=== PATIENT | male | born 1980 | race Caucasian/White ===

== ENCOUNTER 2017-04-14 10:14 | Emergency (ER) | payer OTHER ==
[~2017-04-14] VITALS: Ht 185.4 cm; Wt 98.4 kg
[2017-04-14] MEDS ORDERED: BUSP7.5T5 PO (10:39)
[2017-04-14] MEDS ORDERED: ALPR0.5T PO (10:39)
--- NOTE | 2017-04-14 10:49 | ED Upper Extremity ---
General Chief Complaint: Upper Extremity Stated Complaint: R WRIST INJ Nursing Triage Note: PT C O OF R WRIST PAIN STATES FELL LAST PM AND TRIED TO CATCH SELF INJURING R WRIST. Nursing Sepsis Screen: No Definite Risk Source: patient, family Exam Limitations: no limitations History of Present Illness Time seen by provider: 10:45 Initial Comments This 37-year-old white male presents after falling on outstretched dominant right arm shortly prior to presentation emergency department patient's complaint of pain over the radial aspect of the right wrist. Patient sustained associated abrasions to the right elbow. Patient denies other injury to his accident. Patient denies previous significant injury to his right wrist. Patient's last tetanus immunization was greater than 10 years. Patient denies paresthesias or weakness in the right upper extremity. Allergies and Home Medications Allergies Coded Allergies: No Known Drug Allergies (Unverified Allergy, Mild, 12/29/08) Home Medications Alprazolam 0.5 Mg Tablet, 0.5 MG PO, (Reported) Buspirone HCl 7.5 Mg Tablet, Unknown Dose PO, (Reported) Constitutional: No chills, No fever EENTM: No vision loss Respiratory: No short of breath Cardiovascular: No chest pain Gastrointestinal: No abdominal pain Musculoskeletal: see HPI, No back pain, joint pain Skin: other (abrasion posterior aspect of the right elbow.) Psychiatric/Neurological: No Symptoms Reported Past Pzswbpe-Dntyjw-Mqtcwt Hx Patient Social History Alcohol Use: Denies Use Recreational Drug Use: No Smoking Status: Never a Smoker Recent Foreign Travel: No Contact w/Someone Who Travel: No Recent Infectious Disease Expo: No Physical Abuse: No Sexual Abuse: No Immunizations Up To Date Tetanus Booster (TDap): Less than 5yrs Psychosocial Suicide Risk Score: 0 Reviewed Nursing Assessment Reviewed/Agree w Nursing PMH: Yes Physical Exam Vital Signs Vital Sign - Last 12Hours 04/14/17 10:25 Temp 97.9 Pulse 76 Resp 18 B/P (MAP) 120/81 Pulse Ox 97 Capillary Refill : Less Than 3 Seconds General Appearance: WD/WN, mild distress HEENT: PERRL/EOMI, normal ENT inspection Neck: non-tender, full range of motion Cardiovascular: normal peripheral pulses, regular rate, rhythm, no murmur Respiratory: chest non-tender, lungs clear, normal breath sounds Gastrointestinal: normal bowel sounds Back: normal inspection Shoulder: normal inspection Elbow/Forearm: normal inspection Wrist: Yes pain (there is tenderness and swelling over the right radial wrist and anatomic snuffbox.), Yes soft tissue tenderness, Yes swelling Hand: normal inspection Neurologic/Tendon: normal sensation, normal motor functions, normal tendon functions Neurologic/Psychiatric: no motor/sensory deficits, alert, normal mood/affect Skin: normal color, warm/dry, other (abrasions are noted over the posterior aspect of the right elbow region.) Progress/Results/Core Measures Results/Orders My Orders Orders - THONY FOSTER MD Wrist, Right, 3 Views Or More (04/14/17 10:39) Ns Iv 1000 Ml (Sodium Chloride 0.9%) (04/14/17 11:00) Fentanyl Injection (Sublimaze Injection (04/14/17 11:00) Ondansetron Injection (Zofran Injectio (04/14/17 11:00) Dipht,Pertuss(Acell),Tet Adult (Boostrix (04/14/17 11:00) Ct Extremity Upper Right W (04/14/17 11:11) Medications Given in ED Current Medications Medications Dose Ordered Sig/Ita Route Start Time Stop Time Status Last Admin Dose Admin Fentanyl Citrate 50 mcg ONCE ONCE IVP 04/14/17 11:00 04/14/17 11:01 DC 04/14/17 11:10 100 MCG Vital Signs/I&O Vital Sign - Last 12Hours 04/14/17 10:25 Temp 97.9 Pulse 76 Resp 18 B/P (MAP) 120/81 Pulse Ox 97 Blood Pressure Mean: 94 Progress Note : Time: 11:24 Progress Note X-ray demonstrated a comminuted intra-articular Colles' fracture of the patient' s right wrist. I've ordered a CT of the wrist to further illuminate the fractures and to evaluate the carpals. The patient was given fentanyl IM. The patient was placed in a.m. short arm thumb spica splint. I revisited with Dr. Jasso who will see the patient tomorrow afternoon. I encouraged the patient to religiously ice and elevate the right upper extremity. Patient's to return if any further problems or questions. Departure Impression Impression: Primary Impression: Colles' fracture of right radius Qualified Codes: S52.531A - Colles' fracture of right radius, initial encounter for closed fracture Disposition: HOME, SELF-CARE Condition: Improved Departure-Patient Inst. Decision time for Depature: 11:26 Referrals: NO,LOCAL PHYSICIAN (PCP) Primary Care Physician PER JASSO DO Patient Instructions: Colles' Fracture (DC) Add. Discharge Instructions: Ice and elevate the right upper extremity and there splint. Keep right wrist in splint. Hydrocodone for pain. Follow-up with Dr. Jasso tomorrow afternoon. Call the office at 9 a.m. ([phone]). Come back for any problems or questions All discharge instructions reviewed with patient and/or family. Voiced understanding. THONY FOSTER MD Apr 14, 2017 10:49
[2017-04-14] MEDS ORDERED: TETANUS,DIPTH,PERTUSS P/F (BOOSTRIX) 0.5 ML VIAL IM ONE (11:00)
[2017-04-14] MEDS ORDERED: ONDANSETRON 4 MG/2 ML (SDV) Z0FRAN IVP ONE (11:00)
[2017-04-14] MEDS ORDERED: NS IV 1000 ML 1,000 ML IV SCH (11:00)
[2017-04-14] MEDS ORDERED: fentaNYL INJECTION 100 MCG/2 ML AMP IVP ONE (11:00)
--- NOTE | 2017-04-14 11:31 | Diagnostic Imaging Report ---
INDICATION: Status post fall previous night. Pain. TECHNIQUE: 4 views of the right wrist. CORRELATION STUDY: None. FINDINGS: There is a comminuted impacted intra-articular distal right radius fracture. There is outward displacement of the main distal fracture fragments. There is also slight dorsal displacement of the main distal fracture fragments. The carpal bones follow the slightly dorsally displaced radius. There is a mildly displaced ulnar styloid process fracture. The carpal bones appear to be intact. Soft tissue edema present. IMPRESSION: Comminuted mildly displaced angulated impacted intra-articular distal right radius fracture. Minimally displaced ulnar styloid process fracture. Dictated by: Dictated on workstation # [id number]
--- NOTE | 2017-04-14 11:56 | Diagnostic Imaging Report ---
PROCEDURE: CT right upper extremity without contrast. TECHNIQUE: Multiple contiguous axial images were obtained through the right upper extremity without the use of intravenous contrast. Sagittal and coronal reformations were then performed. INDICATION: Fall with fracture demonstrated on radiograph. Followup. FINDINGS: There is multipart comminuted impacted fracture of the distal left radius. Fracture lines extend into the articular surface particularly along its central and medial aspect. There is impaction along the main fracture lines. Dorsal displacement and offset of the main fracture fragments of approximately 6 mm. There is also some outward displacement of fragments particularly along the dorsal aspect. Slight volar angulation. The carpal bones follow the displaced radial articular surface. There is also mildly displaced ulnar styloid process fracture. Carpal bones intact. Rather prominent soft tissue swelling is noted. IMPRESSION: Comminuted impacted displaced and angulated intra-articular radius fracture. Mildly displaced ulnar styloid process fracture. Associated soft tissue swelling. Dictated by: Dictated on workstation # [id number]
[2017-04-14 12:05] VITALS: BP 120/81
== END 2017-04-14 12:05 | disposition home or self-care (01) ==
LOC: EDUNIT# 10:14 → ER 10:16
DX: S52.531A Colles' fracture of right radius, initial encounter for closed fracture (principal); Z23 Encounter for immunization; W18.30XA Fall on same level, unspecified, initial encounter
CPT/HCPCS: 73110; 73200; 90471; 90715; 96372; 99284

== ENCOUNTER 2020-06-10 15:22 | Emergency (ER) | payer SELFPAY ==
[~2020-06-10] VITALS: Ht 182 cm; Wt 84.0 kg
[~2020-06-10 15:22] MED LIST: ALPR0.5T PO; BUSP7.5T5 PO
[2020-06-10] MEDS ORDERED: HOLD METFORMIN - RECEIVED CONTRAST 20 ML VIAL IV SCH (15:45)
[2020-06-10] MEDS ORDERED: IOHEXOL 350 MG/ML 100 ML (OMNIPAQUE 350) VIAL IV ONE (15:45)
[2020-06-10] MEDS ORDERED: NS 100 ML (IVPB) BAG IV ONE (15:45)
[2020-06-10] MEDS ORDERED: fentaNYL INJECTION 100 MCG/2 ML AMP IVP ONE (15:45)
[2020-06-10] MEDS ORDERED: CATHETER FLUSH 10 ML SYR IV PRN (15:45)
--- NOTE | 2020-06-10 15:47 | NUR ---
UMBILICAL HERNIA REDUCED BY BENDER MACHINE. PT FEELS RELIEF
--- NOTE | 2020-06-10 15:53 | ED Abdominal Pain ---
General Chief Complaint: Abdominal/GI Problems Stated Complaint: SEVERE ABD PAIN Source of Information: Patient Exam Limitations: No Limitations History of Present Illness Date Seen by Provider: Jun 10, 2020 Time Seen by Provider: 15:49 Initial Comments To ER with sudden onset severe umbilical abdominal pain and an increase in the bulge size. He had a bulge in the umbilicus for several years. This sudden increase in pain began about 2 to 3 hours ago while he was just sitting there on a Zoom call on his computer. He vomited a couple of times because of the pain. Timing/Duration: 1-3 Hours Severity/Quality: Moderate Location: Periumbilical Radiation: No Radiation Activities at Onset: None Allergies and Home Medications Allergies Coded Allergies: No Known Drug Allergies (Unverified Allergy, Mild, 12/29/08) Patient Home Medication List Home Medication List Reviewed: Yes Review of Systems Review of Systems Constitutional: see HPI EENTM: No Symptoms Reported Respiratory: No Symptoms Reported Cardiovascular: No Symptoms Reported Gastrointestinal: See HPI, Abdominal Pain Genitourinary: No Symptoms Reported Musculoskeletal: no symptoms reported Skin: no symptoms reported Psychiatric/Neurological: No Symptoms Reported Endocrine: No Symptoms Reported Hematologic/Lymphatic: No Symptoms Reported Past Lqipsdj-Qpldbc-Odavvq Hx Patient Social History Recent Foreign Travel: No Contact w/Someone Who Travel: No Immunizations Up To Date Tetanus Booster (TDap): Less than 5yrs Physical Exam Vital Signs Vital Signs - First Documented 06/10/20 15:37 Temp 35.6 Pulse 55 Resp 20 Pulse Ox 100 O2 Delivery Room Air Capillary Refill : Height/Weight/BMI Height: 6'1.00" Weight: 217lbs. oz. 98.626468ik; BMI Method:Stated General Appearance: WD/WN, mild distress Neck: non-tender, full range of motion Respiratory: normal breath sounds, no respiratory distress, no accessory muscle use Gastrointestinal: normal bowel sounds, soft, tenderness (There is a golf ball sized umbilical hernia very tender to palpation. He was given 75 mcg of fentanyl and I held steady pressure over this and was ultimately able to completely reduce this hernia. He had immediate significant improvement in his pain.) Neurologic/Psychiatric: alert, normal mood/affect, oriented x 3 Skin: normal color, warm/dry Progress/Results/Core Measures Results/Orders Lab Results Laboratory Tests Test 06/10/20 15:40 Range/Units White Blood Count 9.5 4.3-11.0 10^3/uL Red Blood Count 5.35 4.35-5.85 10^6/uL Hemoglobin 15.3 13.3-17.7 G/DL Hematocrit 46 40-54 % Mean Corpuscular Volume 87 80-99 FL Mean Corpuscular Hemoglobin 29 25-34 PG Mean Corpuscular Hemoglobin Concent 33 32-36 G/DL Red Cell Distribution Width 14.2 10.0-14.5 % Platelet Count 271 130-400 10^3/uL Mean Platelet Volume 9.3 7.4-10.4 FL Neutrophils (%) (Auto) 56 42-75 % Lymphocytes (%) (Auto) 30 12-44 % Monocytes (%) (Auto) 7 0-12 % Eosinophils (%) (Auto) 6 0-10 % Basophils (%) (Auto) 1 0-10 % Neutrophils # (Auto) 5.3 1.8-7.8 X 10^3 Lymphocytes # (Auto) 2.8 1.0-4.0 X 10^3 Monocytes # (Auto) 0.7 0.0-1.0 X 10^3 Eosinophils # (Auto) 0.6 H 0.0-0.3 10^3/uL Basophils # (Auto) 0.1 0.0-0.1 10^3/uL Sodium Level 140 135-145 MMOL/L Potassium Level 3.9 3.6-5.0 MMOL/L Chloride Level 104 98-107 MMOL/L Carbon Dioxide Level 22 21-32 MMOL/L Anion Gap 14 5-14 MMOL/L Blood Urea Nitrogen 14 7-18 MG/DL Creatinine 1.03 0.60-1.30 MG/DL Estimat Glomerular Filtration Rate > 60 BUN/Creatinine Ratio 14 Glucose Level 113 H 70-105 MG/DL Calcium Level 9.1 8.5-10.1 MG/DL Corrected Calcium 8.8 8.5-10.1 MG/DL Total Bilirubin 0.4 0.1-1.0 MG/DL Aspartate Amino Transf (AST/SGOT) 28 5-34 U/L Alanine Aminotransferase (ALT/SGPT) 36 0-55 U/L Alkaline Phosphatase 67 40-136 U/L C-Reactive Protein High Sensitivity 0.11 0.00-0.50 MG/DL Total Protein 7.9 6.4-8.2 GM/DL Albumin 4.4 3.2-4.5 GM/DL Lipase 38 8-78 U/L My Orders Orders - LAUREN PAREKH QA SOFTWARE TEST ENGINEER Cbc With Automated Diff (06/10/20 15:32) Comprehensive Metabolic Panel (06/10/20 15:32) Lipase (06/10/20 15:32) Ua Culture If Indicated (06/10/20 15:32) Ed Iv/Invasive Line Start (06/10/20 15:32) Hs C Reactive Protein (06/10/20 15:32) Fentanyl Injection (Sublimaze Injection (06/10/20 15:45) Ct Abdomen/Pelvis W (06/10/20 15:32) Iohexol Injection (Omnipaque 350 Mg/Ml 1 (06/10/20 15:45) Received Contrast (Hold Metformin- Contr (06/10/20 15:45) Sodium Chloride Flush (Catheter Flush Sy (06/10/20 15:45) Ns (Ivpb) (Sodium Chloride 0.9% Ivpb Bag (06/10/20 15:45) Medications Given in ED Current Medications Medications Dose Ordered Sig/Ita Route Start Time Stop Time Status Last Admin Dose Admin Fentanyl Citrate 50 mcg ONCE ONCE IVP 06/10/20 15:45 06/10/20 15:46 DC 06/10/20 15:47 50 MCG Iohexol 100 ml ONCE ONCE IV 06/10/20 15:45 06/10/20 15:46 DC 06/10/20 16:09 100 ML Sodium Chloride 10 ml NEEDED PRN IV 06/10/20 15:45 06/10/20 16:10 10 ML Sodium Chloride 100 ml ONCE ONCE IV 06/10/20 15:45 06/10/20 15:46 DC 06/10/20 16:09 80 ML Vital Signs/I&O 06/10/20 15:37 Temp 35.6 Pulse 55 Resp 20 B/P (MAP) Pulse Ox 100 O2 Delivery Room Air Diagnostic Imaging Diagonstic Imaging: CT Comments NAME: CONCEPCIONTONY Fredrick MED REC#: [id number] PT STATUS: REG ER : 1980 PHYSICIAN: LAUREN PAREKH QA SOFTWARE TEST ENGINEER ADMIT DATE: 06/10/20/ER Draft Date of Exam:06/10/20 CT ABDOMEN/PELVIS W EXAMINATION: CT Abdomen and Pelvis with intravenous contrast. TECHNIQUE: Multiple contiguous axial images were obtained through the abdomen and pelvis after the uneventful administration of intravenous contrast. All CT scans use one or more of the following dose optimizing techniques: automated exposure control, MA and/or KvP adjustment based on a patient size and exam type, or iterative reconstruction. HISTORY: Umbilical hernia. Abdominal pain. COMPARISON: None available. FINDINGS: The heart is unremarkable. The included lung bases are clear. The liver, spleen, pancreas, adrenal glands, and kidneys have a normal appearance. There is no pathologically enlarged mesenteric or retroperitoneal adenopathy. Fluid-filled mildly prominent loops of small bowel are visualized in the left hemiabdomen. Normal appendix is seen in the right lower quadrant. There is no free fluid or free air. No acute osseous abnormalities. Small fat-containing umbilical hernia is present. The urinary bladder is nondistended. There is no free air, loculated collection, or adenopathy in the pelvis. IMPRESSION: 1. Mildly prominent fluid-filled loops of small bowel in the left hemiabdomen, favored to represent enteritis. Early small bowel obstruction is felt to be less likely. Recommend follow-up as indicated. No free fluid or free air. 2. Small fat-containing periumbilical hernia. Dictated on workstation # [id number] Dict: 06/10/20 1621 Trans: 06/10/20 1630 [id number] Interpreted by: OUMAR YORK DO Electronically signed by: Departure Communication (Admissions) [id number] feels well, I spoke with Dr. Garcia and he agrees with plan of care. Advises to recommend the patient return for any sign of ischemic bowel though there is none visualized on CT or and none supported by lab. Hell follow up with the patient next week. Impression Primary Impression: Umbilical hernia Disposition: 01 HOME, SELF-CARE Condition: Stable Departure-Patient Inst. Decision time for Depature: 15:52 Referrals: DELIO GARCIA BRETT D DO KIDO, TAKAAKI MD NO,LOCAL PHYSICIAN (PCP) Primary Care Physician Patient Instructions: Umbilical Hernia, Adult Add. Discharge Instructions: 1. Call a surgeon of your choosing on Saturday to make an appointment to be seen to schedule getting this repaired. Return to ER if this reherniates and you are unable to reduce it yourself. Return promptly to ER for any severe or worsening pain, nausea, other concerns. All discharge instructions reviewed with patient and/or family. Voiced understanding. LAUREN PAREKH APRN Jun 10, 2020 15:52
--- NOTE | 2020-06-10 16:01 | NUR ---
PT IS UNDER QUARANTINE FOR Trampoline
[2020-06-10 16:04] LABS: BASOPHILS % (AUTO) 1 % (0-10); EOSINOPHILS % (AUTO) 6 % (0-10); HEMATOCRIT 46 % (40-54); HEMOGLOBIN 15.3 G/DL (13.3-17.7); LYMPHOCYTES % (AUTO) 30 % (12-44); MEAN CORPUSCULAR HEMOGLOBIN 29 PG (25-34); MEAN CORPUSCULAR HGB CONC 33 G/DL (32-36); MEAN CORPUSCULAR VOLUME 87 FL (80-99); MEAN PLATELET VOLUME 9.3 FL (7.4-10.4); MONOCYTES % (AUTO) 7 % (0-12); NEUTROPHILS % (AUTO) 56 % (42-75); PLATELET COUNT 271 10^3/uL (130-400); WHITE BLOOD COUNT 9.5 10^3/uL (4.3-11.0)
[2020-06-10 16:05] LABS: BASOPHILS # (AUTO) 0.1 10^3/uL (0.0-0.1); EOSINOPHILS # (AUTO) 0.6 10^3/uL (0.0-0.3); LYMPHOCYTES # (AUTO) 2.8 X 10^3 (1.0-4.0); MONOCYTES # (AUTO) 0.7 X 10^3 (0.0-1.0); NEUTROPHILS # (AUTO) 5.3 X 10^3 (1.8-7.8)
[2020-06-10 16:07] LABS: ALBUMIN 4.4 GM/DL (3.2-4.5); CHLORIDE 104 MMOL/L (98-107); POTASSIUM 3.9 MMOL/L (3.6-5.0); SODIUM 140 MMOL/L (135-145)
[2020-06-10 16:08] LABS: CALCIUM 9.1 MG/DL (8.5-10.1)
[2020-06-10 16:09] LABS: GLUCOSE 113 MG/DL (70-105); TOTAL PROTEIN 7.9 GM/DL (6.4-8.2)
[2020-06-10 16:10] LABS: CARBON DIOXIDE 22 MMOL/L (21-32)
[2020-06-10 16:11] LABS: BILIRUBIN,TOTAL 0.4 MG/DL (0.1-1.0)
[2020-06-10 16:13] LABS: ALKALINE PHOSPHATASE 67 U/L (40-136); CREATININE SERUM 1.03 MG/DL (0.60-1.30); GFR ESTIMATED > 60
[2020-06-10 16:14] LABS: BUN/CREATININE RATIO 14
[2020-06-10 16:16] LABS: ALANINE AMINOTRANSFERASE 36 U/L (0-55); LIPASE 38 U/L (8-78)
--- NOTE | 2020-06-10 16:30 | Diagnostic Imaging Report ---
EXAMINATION: CT Abdomen and Pelvis with intravenous contrast. TECHNIQUE: Multiple contiguous axial images were obtained through the abdomen and pelvis after the uneventful administration of intravenous contrast. All CT scans use one or more of the following dose optimizing techniques: automated exposure control, MA and/or KvP adjustment based on a patient size and exam type, or iterative reconstruction. HISTORY: Umbilical hernia. Abdominal pain. COMPARISON: None available. FINDINGS: The heart is unremarkable. The included lung bases are clear. The liver, spleen, pancreas, adrenal glands, and kidneys have a normal appearance. There is no pathologically enlarged mesenteric or retroperitoneal adenopathy. Fluid-filled mildly prominent loops of small bowel are visualized in the left hemiabdomen. Normal appendix is seen in the right lower quadrant. There is no free fluid or free air. No acute osseous abnormalities. Small fat-containing umbilical hernia is present. The urinary bladder is nondistended. There is no free air, loculated collection, or adenopathy in the pelvis. IMPRESSION: 1. Mildly prominent fluid-filled loops of small bowel in the left hemiabdomen, favored to represent enteritis. Early small bowel obstruction is felt to be less likely. Recommend follow-up as indicated. No free fluid or free air. 2. Small fat-containing periumbilical hernia. Dictated by: Dictated on workstation # [id number]
[2020-06-10 16:53] VITALS: BP 128/68
== END 2020-06-10 16:53 | disposition home or self-care (01) ==
LOC: EDUNIT# 15:22 → ER 15:25
DX: K42.9 Umbilical hernia without obstruction or gangrene (principal)
CPT/HCPCS: 36415; 74177; 80053; 83690; 85025; 86141

== ENCOUNTER 2020-07-25 05:35 | Outpatient (RCR) | payer BC ==
[~2020-07-25] VITALS: Ht 182.9 cm; Wt 82.1 kg
[2020-07-27] MEDS ORDERED: HYDR-4226 PO (09:16)
== END 2020-07-25 10:28 | disposition home or self-care (01) ==
LOC: PREOP 05:35
PROVIDERS: ATTEND Surgery
DX: Z01.812 Encounter for preprocedural laboratory examination (principal); K42.9 Umbilical hernia without obstruction or gangrene; Z20.828 Contact with and (suspected) exposure to other viral communicable diseases
CPT/HCPCS: 87635

== ENCOUNTER 2020-07-27 06:57 | Day surgery (SDC) | payer BC ==
[~2020-07-27] VITALS: Ht 182.9 cm; Wt 82.0 kg
[2020-07-27] VITALS (12 sets, daily range): BP systolic 104–154; BP diastolic 58–94
[2020-07-27] MEDS: LACTATED RINGERS 1,000 ML IV PRN ×2 (07:18→10:12)
[2020-07-27] MEDS ORDERED: LIDOCAINE/EPI 1%-1:100,000 (XYLOCAINE) 50 ML ONE (07:23)
[2020-07-27] MEDS ORDERED: ceFAZolin 2 GM IV Premixed 50 ML IV ONE (07:30)
[2020-07-27] MEDS ORDERED: MIDAZOLAM 2 MG/2 ML (VERSED) VIAL ONE (07:31)
[2020-07-27] MEDS ORDERED: fentaNYL INJECTION 100 MCG/2 ML AMP ONE (07:31)
[2020-07-27] MEDS ORDERED: NEOSTIGMINE 3 MG/3 ML VIAL ONE (07:31)
[2020-07-27] MEDS ORDERED: ONDANSETRON 4 MG/2 ML (SDV) Z0FRAN ONE (07:31)
[2020-07-27] MEDS ORDERED: GLYCOPYRROLATE 0.2 MG/ML (ROBINUL) 2 ML VIAL ONE (07:31)
[2020-07-27] MEDS ORDERED: proPOfol 200 MG/20 ML (DIPRIVAN) VIAL IV ONE (07:31)
[2020-07-27] MEDS ORDERED: ROCURONIUM 10 MG/ML 5 ML SYRINGE IV ONE (07:31)
[2020-07-27] MEDS ORDERED: LIDOCAINE PF 2% 5 ML (XYLOCAINE) VIAL ONE (07:31)
[2020-07-27] MEDS ORDERED: SEVOFLURANE (ULTANE) 15 ML INHAL SOLN ONE ×2 (07:31→09:15)
--- NOTE | 2020-07-27 08:19 | Progress Note-Pre Operative ---
Pre-Operative Progress Note H&P Reviewed The H&P was reviewed, patient examined and no changes noted. Time Seen by Provider: 08:16 Date H&P Reviewed: Jul 27, 2020 Time H&P Reviewed: 08:17 Pre-Operative Diagnosis: Incarcerated Umbilical hernia DELIO GARCIA DO Jul 27, 2020 08:19
[2020-07-27] MEDS ORDERED: HYDROmorphone 2 MG/ML VIAL (DILAUDID) ONE ×2 (08:50→09:39)
[2020-07-27] MEDS ORDERED: HYDR-4226 PO (09:16)
--- NOTE | 2020-07-27 09:16 | Progress Note-Post Operative ---
Post-Operative Progess Note Surgeon (s)/Training And Development Project Leader (s) Surgeon DELIO GARCIA DO Training And Development Project Leader: Bernadine Pre-Operative Diagnosis Incarcerated Umbilical hernia Post-Operative Diagnosis same, 2 defects Procedure & Operative Findings Date of Procedure 07/27/20 Procedure Performed/Findings PROCEDURE: Laparoscopic [incarcerated umbilical] hernia repair with mesh. COMPLICATIONS: None. INDICATIONS: The patient is a 40, male with an [incarcerated umbilical] hernia, which has continued to increase in size and cause discomfort. The patient was explained the risk and benefits of the procedure and wished to proceed with the procedure. Consent was signed on the chart. DESCRIPTION OF PROCEDURE: The patient was taken into the operating suite, prepped and draped in sterile fashion. Surgical pause was performed. Local anesthetic was infiltrated in left upper quadrant. A 15 blade scalpel was used to make a small skin incision. Cautery was used to dissect down to the fascia, which was then scored and divided the muscle, went through the posterior sheath and a balloon trocar was inserted into the abdomen. The abdomen was then insufflated. Actually saw 2 defects, both with fat incarcerated in them. A 5 mm trocar was placed in the right lower quadrant and a 5 mm trocar was placed in left lower quadrant. [The defect was small and did not need to close. Made a stab incision with #11 blade and advanced the Ezequiel-Ranulfo; then placed echo Ventralight mesh into the abdomen grabbed through the stab incision. The balloon was inflated on the mesh. Covered both small holes, pics had been taken. Circumferential tacks were placed with a SecureStrap Tacker. The balloon was then removed and inner crown was created as well. The mesh was tacked with pressure being decreased. The 12 mm fascial defect was then closed using 0 Vicryl. The abdomen was then desufflated,the trocars were removed. The skin was then closed using 4-0 Monocryl in a running subcuticular fashion. The abdomen was washed and dried and Skin Affix was placed over the incisions. The patient tolerated procedure well without any complications. She was taken to recovery room in stable condition. Anesthesia Type GET Estimated Blood Loss Estimated blood loss (mL): scant Specimens/Packing Specimens Removed hernia contents DELIO GARCIA DO Jul 27, 2020 09:16
--- NOTE | 2020-07-27 09:17 | Discharge Inst-Surgical ---
Discharge Inst-Surgical Depart Medication/Instructions New, Converted or Re-Newed RX: RX Given to Pt/Family Patient Instructions Follow up Appt: Make appointment for 1 week. [phone] Instructions: No lifting greater than 20 pounds. No strenuous activity. May shower in 24 hours, no tub bath or soaking. Use incentive spirometer at home as directed. No Smoking Skin/Wound Care: May remove bandages in am. You need to leave the Dermabond on incision it will fall off on it's own. Symptoms to Report: Appetite Changes, Extremity Discoloration, Numbness/Tingling, Swelling Increased, Bleeding Excessive, Eyesight Changes, Pain Increased, Urine Color Change, Constipation(Persistent), Fever over 101 degree F, Pain/Pressure in chest, Urinating Difficulty, Cough Up/Vomit Blood, Heart Beat Irreg/Pounding, Pain/Pressure in jaw, Cramps in feet or legs, Lightheadedness, Pain/Pressure in shoulder, Diarrhea(Persistent), Memory Changes Suddenly, Questions/Concerns, Weight gain consecutive days, Dizziness/Fainting, Nausea/Vomiting, Shortness of Breath, Weight gain over 2 pounds If questions or concerns contact your physician Or seek help at emergency department. Activity Activity as Tolerated: Yes Activity Instructions: Avoid Stress to Incision Driving Instructions: No Driving/Refer to Dr. Phillip Discharge Diet: No Restrictions Diet After 24 Hours: Clear Liquid if Nauseous If Any Problems/Questions/Issu: Contact Your Physician, Go to Emergency Room Skin/Wound Care Infection Signs and Symptoms: Increased Redness, Foul Odor of Wound, Increased Drainage, Skin Itchy or Has a Rash, Increased Swelling, Temperature Above 101 F Wound Care Comment: Heating pad to shoulder or neck tonight for pain Bathing Instructions: Shower Stitches/Anatoly/Dermabond Dis: Dermabond Ice Pack: Ice On and Off Site (at incisions as needed for pain) DELIO GARCIA DO Jul 27, 2020 09:17
[2020-07-27] MEDS ORDERED: KETOROLAC 30 MG/ML VIAL ONE (09:39)
[2020-07-27] MEDS ORDERED: KETOROLAC 30 MG/ML VIAL IVP ONE (09:45)
[2020-07-27] MEDS ORDERED: ONDANSETRON 4 MG/2 ML (SDV) Z0FRAN IVP PRN (09:45)
[2020-07-27] MEDS ORDERED: morphine INJ 10 MG/ML 1ML (SYR OR VIAL) IVP ONE (09:45)
[2020-07-27] MEDS ORDERED: HYDROmorphone 2 MG/ML VIAL (DILAUDID) IV ONE (09:45)
--- NOTE | 2020-07-27 12:48 | Anesthesia-General Post-Op ---
General Patient Condition Mental Status/LOC: Same as Preop Cardiovascular: Satisfactory Nausea/Vomiting: Absent Respiratory: Satisfactory Pain: Controlled Complications: Absent Post Op Complications Complications None Follow Up Care/Instructions Patient Instructions None needed. Anesthesia/Patient Condition Patient Condition Patient was seen this morning after the procedure and he was doing well, no complaints, stable vital signs, no apparent adverse anesthesia problems. SHELLY MAIER DO Jul 27, 2020 12:48
== END 2020-07-27 11:35 | disposition home or self-care (01) ==
LOC: SDC 06:57
PROVIDERS: ATTEND Surgery
DX: K42.0 Umbilical hernia with obstruction, without gangrene (principal); F17.210 Nicotine dependence, cigarettes, uncomplicated; Z83.3 Family history of diabetes mellitus; Z80.9 Family history of malignant neoplasm, unspecified
CPT/HCPCS: 49653; 87081; C1781